=== PATIENT | female | born 1995 | race Caucasian/White ===

== ENCOUNTER 2017-05-11 11:44 | Emergency (ER) | payer OTHER, BC ==
[~2017-05-11] VITALS: Ht 165.1 cm; Wt 79.4 kg
[2017-05-11 14:01] LABS: EOSINOPHIL (%) 2.8 % (0-5); EOSINOPHIL COUNT 0.2 K/uL (0-0.3); HEMATOCRIT 38.3 % (36.0-46.0); IMMATURE GRANULOCYTE (%) 0.4 % (0.0-0.7); INSTRUMENT ABS NEUTROPHIL CT 3.1 K/uL; LYMPHOCYTE COUNT 1.7 K/uL (1.0-2.8); MCH 30.3 PG (29.0-34.0); MCHC 33.4 G/DL (30.0-36.0); MCV 90.5 FL (83-99); MEAN PLAT.VOLUME 10.1 uM^3 (9.5-12.4); MONOCYTE (%) 7.4 % (3-12); MONOCYTE COUNT 0.4 K/uL (0-0.8); NEUTROPHIL (%) 57.7 % (45-76); NEUTROPHIL COUNT 3.1 K/uL (1.8-6.4); PLATELET COUNT 229 K/uL (156-360); RBC DIS.WIDTH-SD 39.9 % (39-53); RED BLOOD COUNT 4.23 M/uL (3.80-5.20); WHITE BLOOD COUNT 5.4 K/uL (4.1-10.2)
[2017-05-11 14:12] LABS: CHLORIDE 107 mEq/L (99-109); POTASSIUM 4.3 mEq/L (3.7-5.4); SODIUM 140 mEq/L (136-147)
[2017-05-11 14:13] LABS: GLUCOSE 105 mg/dL (70-99)
[2017-05-11 14:15] LABS: ANION GAP 9 MEQ/L (2-14)
[2017-05-11 14:17] LABS: GFR ESTIMATE (CALCULATED) > 59 mL/min/
[2017-05-11 14:18] LABS: UREA NITROGEN (BUN) 9 mg/dL (9-23)
[2017-05-11 14:26] LABS: QUANTITATIVE HCG < 4.0 MIU/ML
[2017-05-11] MEDS ORDERED: TYLENOL WITH C1 EACH PO (17:01)
[2017-05-11 17:19] VITALS: BP 111/68
== END 2017-05-11 17:22 | disposition home or self-care (01) ==
LOC: EME 11:44 → TRA 11:44
PROVIDERS: Emergency Medicine
DX: S10.93XA Contusion of unspecified part of neck, initial encounter (principal); S20.229A Contusion of unspecified back wall of thorax, initial encounter; S20.219A Contusion of unspecified front wall of thorax, initial encounter; V44.5XXA Car driver injured in collision with heavy transport vehicle or bus in traffic accident, initial encounter
CPT/HCPCS: 70450; 71260; 72125; 72129; 72132; 74177; 80048; 84702; 84702 90; 85025; 99281; 99284; J7030